=== PATIENT | female | born 1985 | race African-American/Black ===

== ENCOUNTER 2019-10-23 13:46 | Emergency (ER) | payer MEDICARE, SELFPAY ==
[2019-10-23 13:46] VITALS: BP 160/60; PULSE 69; RESP 14; O2SAT 100
[2019-10-23 13:49] VITALS: BP 138/65; PULSE 61; RESP 14; TEMP 37.1; O2SAT 100
--- NOTE | 2019-10-23 14:01 | ED.SYNCOPE ---
HPI - Syncope General Chief Complaint: Seizure Stated Complaint: Syncopal episode Time Seen by Provider: 10/23/19 13:49 Source: patient and RN notes reviewed Mode of arrival: ambulatory Limitations: no limitations History of Present Illness HPI narrative: Pt is a 34 y/o female with a Hx of Chiari malformation, who presents to the ED with c/o syncopal episode happening this afternoon. She notes that she has been very busy and under increased stress at work recently. Pt states that she felt very tired while getting lunch at the [facility] cafeteria this afternoon, noting that she began feeling dizzy and out of it while she was paying for her food. She states that her legs felt as though they were going to give out on her, but notes that she was able to get to a table and sit down. Pt states that shortly after sitting down, she likely lost consciousness. She notes that she doesn't remember what happened, stating that she only remembers waking up to several people standing around her. Pt denies any urinary incontinence or tongue bite during the episode. She notes that she has a Hx of grand mal seizures, but bystanders note that the pt didn't have any convulsions during this episode. Pt currently reports a headache, but denies any other symptoms. MD complaint: loss of consciousness Onset (ago): minute(s) (30) Prodromal symptoms: other (dizziness; weakness) Witnessed: Yes - by Bystander Context: other (while getting lunch) Injuries sustained associated with event: none Current symptoms: headache History: seizure disorder Related Data Home Medications Medication Instructions Recorded Confirmed albuterol sulfate 90 mcg/actuation 2 puff INHALATION Q4-6H PRN gm 07/15/19 10/08/19 aerosol inhaler esomeprazole magnesium 40 mg 40 mg PO DAILY 07/15/19 10/08/19 capsule,delayed release famotidine 20 mg tablet 20 mg PO DAILY 07/15/19 10/08/19 lisinopril 40 mg tablet 40 mg PO DAILY 07/15/19 10/08/19 pregabalin 150 mg capsule 150 mg PO BID 07/15/19 10/08/19 tizanidine 4 mg tablet 4 mg PO Q6-8H PRN tablet 07/15/19 10/08/19 venlafaxine 150 mg 150 mg PO QAM 12/17/19 03/11/20 capsule,extended release 24 hr amitriptyline 10 mg tablet 10 mg PO ONCE tablet 08/06/19 10/08/19 acetazolamide 250 mg tablet 1,000 mg PO BID tablet 09/29/19 10/08/19 Allergies Allergy/AdvReac Type Severity Reaction Status Date / Time topiramate Allergy Unknown ELEVATED Verified 08/19/19 15:03 LIVER ENZYMES, PANCREATITIS Review of Systems Review of Systems: All systems reviewed & are unremarkable except as noted in HPI and below Constitutional: Constitutional: Reports weakness ENT: Denies other (tongue bite) Genitourinary: Genitourinary: Denies urinary incontinence Neurologic: Reports dizziness, Reports syncope and Reports headache(s) [facility] Past Medical History Medical History (Updated 10/24/19 @ 06:57 by José Miguel Martin MD) Anxiety Arnold-Chiari malformation, type I Arthritis Asthma Bronchitis GERD (gastroesophageal reflux disease) Headache, migraine Hernia Hypertension EVELINA (obstructive sleep apnea) Pancreatitis Seizures Surgical History Surgical History History of cholecystectomy Hx of brain surgery decompression for Chiari malformation Hx of gastric bypass Social History Social History Smoking status: Never smoker Second hand tobacco smoke exposure: No Alcohol intake: never Exam Narrative: Exam Narrative: GENERAL: Well-appearing, morbidly obese, and in no acute distress. HEAD: Normocephalic, atraumatic. EYES: PERRL and EOMI. ENT: Mucous membranes moist. No bite hess to tongue. CHEST: Clear to auscultation. No respiratory distress. HEART: Regular rate and rhythm. Normal peripheral pulses. EXTREMITIES: Normal range of motion. No edema. SKIN: Warm, dry, no rash. NEURO: No focal deficits. Alert and [place]
--- NOTE | 2019-10-23 14:30 | PC.NURSE ---
multipe attempts to start IV unsuccessfully. message left with IV therapy for ultrasound iv placement.
[2019-10-23 14:31] VITALS: BP 131/67; PULSE 53; RESP 20; O2SAT 100
[2019-10-23 14:33] VITALS: PULSE 53
[2019-10-23 15:30] VITALS: BP 110/72; PULSE 53; RESP 20; O2SAT 100
== END 2019-10-23 15:30 | disposition left against medical advice (07) ==
PROVIDERS: Emergency Provider Emergency Medicine; PCP Internal Medicine
DX: R55 Syncope and collapse (principal); R51 Headache; G93.5 Compression of brain; M19.90 Unspecified osteoarthritis, unspecified site; J45.909 Unspecified asthma, uncomplicated; K21.9 Gastro-esophageal reflux disease without esophagitis; I10 Essential (primary) hypertension; G47.33 Obstructive sleep apnea (adult) (pediatric); Z98.84 Bariatric surgery status; F41.9 Anxiety disorder, unspecified
CPT/HCPCS: 99284

== ENCOUNTER 2019-11-07 12:36 | Outpatient (CLI) | payer MEDICARE, SELFPAY ==
--- NOTE | ~2019-11-07 | XR_ITS ---
EXAMINATION: XR chest 2V DATE: 11/07/2019 12:55 INDICATION: Shortness of breath. TECHNIQUE: Frontal and lateral views of the chest were obtained. COMPARISON: Chest single view at 02/05/2019 FINDINGS: There is motion artifact on the lateral view. The chest demonstrates clear lungs without pn eumonia, pleural effusion, or pneumothorax. The heart size is normal. Surgical clips in the right upp er quadrant are likely from cholecystectomy. IMPRESSION: 1. No acute cardiopulmonary disease. Reviewed, dictated and finalized at location A.
== END 2019-11-07 12:37 | disposition home or self-care (01) ==
LOC: ANHIMG 12:39
PROVIDERS: PCP Internal Medicine; Visit Provider Nurse Practitioner Family
DX: R06.02 Shortness of breath (principal)
CPT/HCPCS: 71046

== ENCOUNTER 2020-04-29 10:19 | Outpatient (CLI) | payer MEDICARE, SELFPAY ==
--- NOTE | ~2020-04-29 | US_ITS ---
EXAMINATION: US venous doppler LE RT EXAM DATE: 04/29/2020 10:55 INDICATION: Right pain, swelling, elevated d-dimer. TECHNIQUE: Multiple grayscale, color flow and Doppler images of the right lower extremity deep venous system were obtained and reviewed. There is no prior study for comparison. FINDINGS: The right common femoral, femoral and profunda veins demonstrate normal color flow, respira tory variation, augmentation and compressibility. Compressibility, color flow confirmed within the r ight popliteal, posterior tibial, peroneal, and greater saphenous veins. IMPRESSION: 1. No right lower extremity deep venous thrombosis. Reviewed, dictated and finalized at location A.
[2020-04-29 10:53] VITALS: BP 103/59; BP 124/68; PULSE 83; PULSE 89; RESP 18; RESP 20; O2SAT 90; O2SAT 92
== END 2020-04-29 10:20 | disposition home or self-care (01) ==
PROVIDERS: PCP Internal Medicine; Visit Provider Physician Assistant
DX: R79.89 Other specified abnormal findings of blood chemistry (principal); M79.89 Other specified soft tissue disorders
CPT/HCPCS: 93971

== ENCOUNTER 2020-07-21 08:50 | Outpatient (CLI) | payer MEDICARE, SELFPAY ==
--- NOTE | ~2020-07-21 | US_ITS ---
EXAMINATION: US soft tissue LE RT DATE: 07/21/2020 09:26 INDICATION: Ganglion, unspecified site. Right calf lump. TECHNIQUE: Multiple grayscale ultrasound images of the right calf were obtained. COMPARISON: None FINDINGS: In the patient's area of concern in right calf, there is a large distribution of hyperechoi c subcutaneous fat without distinct margins, likely inflammation. IMPRESSION: 1. Hyperechoic subcutaneous fat without distinct margins in the patient's area of concern in right ca lf, likely inflammation. Reviewed, dictated and finalized at location A. MING POOL INSTALLER AND SERVICER IMPRESSION: 1. Hyperechoic subcutaneous fat without distinct margins in the patient's area of concern in right calf, likely inflammation.
== END 2020-07-21 08:51 | disposition home or self-care (01) ==
LOC: ANHIMG 08:54
PROVIDERS: PCP Internal Medicine; Visit Provider Physician Assistant
DX: M67.40 Ganglion, unspecified site (principal); M79.89 Other specified soft tissue disorders
CPT/HCPCS: 76882

== ENCOUNTER 2020-08-03 14:06 | Outpatient (CLI) | payer MEDICARE, SELFPAY ==
--- NOTE | ~2020-08-03 | MR_ITS ---
EXAMINATION: MR femur RT wo/w con DATE: 08/03/2020 15:57 INDICATION: Right thigh lump. TECHNIQUE: Magnetic resonance imaging (MRI) of the right femur was performed without and with 20 mL M ultiHance intravenous contrast. Sequences included axial T1-weighted FS FSE and axial, coronal, and s agittal T1-weighted FSE, T2-weighted FS FSE, and postcontrast T1-weighted FS FSE. COMPARISON: Right femur radiographs 07/26/2020 FINDINGS: Bone alignment is normal. No fracture. Bone marrow signal intensity is normal. The right th igh musculature demonstrates normal signal intensity. There is a skin marker at the posterolateral as pect of the distal thigh. There is no abnormal mass or detectable inflammation in this area. IMPRESSION: 1. No etiology for the patient's symptoms. Reviewed, dictated and finalized at location A. EMATIC THEOLOGY PROFESSOR
[2020-08-03 14:40] LABS: Estimated Glomerular Filt Rate > 60
== END 2020-08-03 14:07 ==
PROVIDERS: Visit Provider Orthopaedic Surgery
DX: R22.41 Localized swelling, mass and lump, right lower limb (principal)
CPT/HCPCS: 73720; A9577

== ENCOUNTER 2020-08-24 06:52 | Outpatient (CLI) | payer MEDICARE, SELFPAY ==
--- NOTE | ~2020-08-24 | MR_ITS ---
EXAMINATION: MR brain/brain stem wo/w con DATE: 08/24/2020 10:23 INDICATION: Headache. TECHNIQUE: Magnetic resonance imaging (MRI) of the brain and brainstem was performed without and with 20 mL MultiHance intravenous contrast. Sequences included sagittal and axial T1-weighted FSE, axial diffusion-weighted FS EPI, axial T2*-weighted GRE, axial T2-weighted FLAIR Propeller, and axial T2-we ighted Propeller. Postcontrast sequences included axial, sagittal, and coronal T1-weighted FSE. Appar ent diffusion coefficient (ADC) maps were created. COMPARISON: Brain MRI 02/07/2019 FINDINGS: The cerebellar tonsils extend inferiorly through the foramen magnum to the level of C1, con sistent with Chiari I malformation. There are changes of resection of the inferior occipital bone and posterior C1 ring. There is no intracranial hemorrhage, acute infarction, or abnormal intracranial m ass lesion. The ventricles are normal in size. There is mild mucosal thickening in right maxillary si nus. The orbits are normal. The mastoid air cells are normal. IMPRESSION: 1. Chiari I malformation status post decompression. Reviewed, dictated and finalized at location A. PHERAL EDP EQUIPMENT OPERATOR
--- NOTE | ~2020-08-24 | MR_ITS ---
EXAMINATION: MR thoracic spine wo/w con EXAM DATE: 08/24/2020 10:23 INDICATION: Headache, surgery for Chiari I malformation. TECHNIQUE: Multi-sequential, multiplanar MR images of the thoracic spine were obtained without contra st. Sagittal T1, T2, T2 fat saturation, axial T2 weighted images reviewed. Axial T1 weighted sequenc e. Patient was then injected with 20 mL Multihance intravenous contrast and reimaged. Postcontrast axial and sagittal T1-weighted fat saturation sequences were obtained. Comparison is made to prior ex amination from 04/28/2015. FINDINGS: Moderate-sized lower cervical syrinx which then becomes imperceptible and then a smaller up per thoracic syrinx at the T2 and T3 levels, measuring about 2 mm maximal AP dimension (thoracic comp onent has significantly decreased in caliber and length, was 6 mm AP dimension in 2015). The remainde r of the thoracic spinal cord and conus are normal in signal. Minimal mid thoracic disc disease with widely patent thoracic central canal and neural foramen. There are no suspicious marrow signal abnorm alities. Mild thoracic facet arthropathy. There are no areas of abnormal enhancement on the post cont rast images. IMPRESSION: Small upper thoracic syrinx at T2 at 3 levels with significant interval decrease in size compared to 2014. 1. Minimal disc disease. Reviewed, dictated and finalized at location A. LOADER IMPRESSION: Small upper thoracic syrinx at T2 at 3 levels with significant interval decrea se in size compared to 2014. 1. Minimal disc disease.
--- NOTE | ~2020-08-24 | MR_ITS ---
EXAMINATION: MR cervical spine wo/w con EXAM DATE: 08/24/2020 10:23 INDICATION: Headache. Chronic area 1 malformation. TECHNIQUE: Multi-sequential, multiplanar MR images of the cervical spine were obtained without contra st. Axial T2, axial T2 MERGE sequence. Sagittal T1, T2, T2 fat saturation images also obtained. Axi al T1 weighted sequence. Patient was then injected with 20 mL Multihance intravenous contrast and re imaged. Postcontrast axial and sagittal T1-weighted fat saturation sequences were obtained. Compar bar is made to prior examination from 10/29/2018. FINDINGS: There are surgical changes from suboccipital decompressive craniectomy for Chiari I malform ation. There is short segment syrinx posterior to C6 and C7 vertebral bodies with maximal axial dime nsions 5 x 4 mm, decreased in size from previous examination at 6 x 5 mm. There is also been interval decrease in size of the smaller syrinx posterior to T2-3 vertebral bodies which now measures 2 mm in AP dimension versus 3 mm on study. There is a hemangioma within the C3 vertebral body posteriorly. Paraspinal soft tissue is unremarkabl e. No more than mild cervical spondylosis without stenosis. There are no areas of abnormal enhancemen t on the post contrast images. IMPRESSION: Improving size of lower cervical, upper thoracic syrinx. No acute findings. Reviewed, dictated and finalized at location A. NING AIDE IMPRESSION: Improving size of lower cervical, upper thoracic syrinx. No acute f indings.
--- NOTE | ~2020-08-24 | MR_ITS ---
EXAMINATION: MR lumbar spine wo/w con EXAM DATE: 08/24/2020 10:23 INDICATION: Headache, chronic urinary malformation. TECHNIQUE: Multi-sequential, multiplanar MR images of the lumbar spine were obtained without contrast . Sagittal T1, T2, T2 fat saturation images. Axial T2 weighted images. Axial T1 weighted sequence. Patient was then injected with 20 mL Multihance intravenous contrast and reimaged. Postcontrast axi al and sagittal T1-weighted fat saturation sequences were obtained. Comparison is made to prior exami nation from 03/01/2015. FINDINGS: There is mild disc disease at L4-5 without loss of height. The vertebral bodies are aligned in the AP dimension. There are no suspicious marrow signal abnormalities. The conus medullaris termi nates at the L1/2 level and has normal signal intensity and morphology. Paraspinal soft tissue is un remarkable. There are no areas of abnormal enhancement on the post contrast images. Level by level evaluation: T12-L1: Disc does not extend beyond the endplate margin. Facet arthropathy: Mild. Neural foraminal stenosis: No stenosis. Central canal stenosis: No stenosis. L1-L2: Disc does not extend beyond the endplate margin. Facet arthropathy: Mild. Neural foraminal stenosis: No stenosis. Central canal stenosis: No stenosis. L2-L3: Disc does not extend beyond the endplate margin. Facet arthropathy: Mild. Neural foraminal stenosis: No stenosis. Central canal stenosis: No stenosis. L3-L4: There is a mild diffuse disc bulge. Facet arthropathy: Mild to moderate . Ligamentum flavum enlargement. Neural foraminal stenosis: Mild bilateral. Central canal stenosis: Mild. L4-L5: There is a mild diffuse disc bulge. Facet arthropathy: Mild to moderate. Neural foraminal stenosis: Mild bilateral. Central canal stenosis: Mild. L5-S1: There is a mild diffuse disc bulge. Facet arthropathy: Mild. Neural foraminal stenosis: No stenosis. Central canal stenosis: Mild. IMPRESSION: 1. Mild lumbar spondylosis. Reviewed, dictated and finalized at location A. LE MANAGER IMPRESSION: 1. Mild lumbar spondylosis.
== END 2020-08-24 06:53 | disposition home or self-care (01) ==
PROVIDERS: Family Provider Internal Medicine; PCP Internal Medicine
DX: G93.5 Compression of brain (principal); M47.817 Spondylosis without myelopathy or radiculopathy, lumbosacral region; M48.07 Spinal stenosis, lumbosacral region; M47.25 Other spondylosis with radiculopathy, thoracolumbar region
CPT/HCPCS: 70553; 72156; 72157; 72158; A9577

== ENCOUNTER 2020-08-26 08:58 | Outpatient (CLI) | payer MEDICARE, SELFPAY ==
--- NOTE | 2020-08-26 | EST_ITS ---
Patient Info Name: Porfirio Prieto Age: 35 years : 1985 Gender: Female Ht: 70 in Wt: 350 lbs BSA: 2.89 m2 Exam Date: 08/26/2020 10:46 AM Exam Location: [facility] Stress Patient Status: Outpatient Admit Date: 08/26/2020 Staff Ordering Physician: Dez Cherry PA-C Attending Provider: Dez Cherry PA-C Exercise Technologist: Lilli Pollack RDCS Exercise Physician: Anil Leung DO Exam Type: CA stress irwin w NM Study Info Indications R06.02 - Shortness of breath A regadenoson stress test was performed. Summary 1. 1. Negative lexiscan stress test for ischemic ST changes by ECG criteria. 2. 2. Stable hemodynamics throughout the test. 3. 3. Nuclear scan to follow and will be reported separately. Please correlate with it. 4. 4. Patient informed of the above results. Protocol: Lexiscan Stress ECG Details Stage: REST Duration (min): 1 min : 29 sec HR (bpm): 70 SBP (mmHg): 126 DBP (mmHg): 91 Stage: REST Duration (min): 6 min : 59 sec HR (bpm): 69 SBP (mmHg): 126 DBP (mmHg): 91 Stage: STAGE 1 Duration (min): 1 min : 0 sec HR (bpm): 98 SBP (mmHg): 131 DBP (mmHg): 78 Stage: RECOVERY Duration (min): 1 min : 0 sec HR (bpm): 98 SBP (mmHg): 134 DBP (mmHg): 81 Stage: RECOVERY Duration (min): 2 min : 0 sec HR (bpm): 93 SBP (mmHg): 134 DBP (mmHg): 81 Stage: RECOVERY Duration (min): 3 min : 0 sec HR (bpm): 92 SBP (mmHg): 136 DBP (mmHg): 80 Stage: RECOVERY Duration (min): 4 min : 0 sec HR (bpm): 93 SBP (mmHg): 136 DBP (mmHg): 80 Stage: RECOVERY Duration (min): 5 min : 0 sec HR (bpm): 88 SBP (mmHg): 149 DBP (mmHg): 75 Stage: RECOVERY Duration (min): 6 min : 0 sec HR (bpm): 91 SBP (mmHg): 149 DBP (mmHg): 75 Stage: RECOVERY Duration (min): 7 min : 0 sec HR (bpm): 91 SBP (mmHg): 149 DBP (mmHg): 75 Stage: RECOVERY Duration (min): 8 min : 0 sec HR (bpm): 90 SBP (mmHg): 158 DBP (mmHg): 97 Stage: RECOVERY Duration (min): 8 min : 53 sec HR (bpm): 83 SBP (mmHg): 131 DBP (mmHg): 96 Rest HR: 69 bpm Peak HR: 99 bpm Rest Sys BP: 126 mmHg Peak Sys BP: 158 mmHg Max Pred HR: 183 bpm % Max Pred HR: 54 % Target HR: 156 bpm Max RPP: 15,642 bpm*mmHg Termination Reason: Completed protocol Cardiac Symptoms: Shortness of breath Total Time: 1 min : 0 sec Rest Aguirre BP: 91 mmHg Peak Aguirre BP: 97 mmHg Total Dose: 0.4 mg Resting ECG Sinus rhythm, borderline T wave in anterolat/inf leads. Stress ECG No ST changes. Arrhythmias None. Report Signatures
--- NOTE | ~2020-08-26 | NM_ITS ---
EXAMINATION: NM stress w perf spect multi DATE: 08/26/2020 12:53 INDICATION: Dyspnea on exertion. TECHNIQUE: Rest images were obtained following intravenous administration of 9.5 mCi Tc99m tetrofosmi n (DripDrop). The patient performed an exercise activity. At peak exercise, 28.5 mCi Tc99m tetrofosmin (IPTEGOview) was administered intravenously, and supine and prone stress images were obtained. Data was reconstructed into short axis and horizontal and vertical long axis SPECT images. Gated SPECT images were also obtained. COMPARISON: None. FINDINGS: There is no definite reversible or fixed perfusion abnormality to suggest ischemia or infar ction. There is no segmental wall motion abnormality. Left ventricular ejection fraction measures > 70%. IMPRESSION: 1. No definite ischemia or infarct. 2. Normal left ventricular ejection fraction measuring >70%. Reviewed, dictated and finalized at location A. EGE ADMINISTRATOR
== END 2020-08-26 08:59 | disposition home or self-care (01) ==
LOC: ANHCARD 08:59
PROVIDERS: Family Provider Internal Medicine; PCP Internal Medicine; Visit Provider Physician Assistant
DX: R06.02 Shortness of breath (principal)
CPT/HCPCS: 78452; 93017; A9502; J2785

== ENCOUNTER 2020-10-07 11:09 | Outpatient (CLI) | payer MEDICARE, SELFPAY ==
[2020-10-07 12:22] LABS: D Dimer 0.96 ug/mL (<0.48)
== END 2020-10-07 11:10 | disposition home or self-care (01) ==
LOC: ANHLAB 11:10
PROVIDERS: PCP Internal Medicine; Visit Provider Physician Assistant
DX: R07.9 Chest pain, unspecified (principal)
CPT/HCPCS: 36415; 85380

== ENCOUNTER 2021-03-31 09:37 | Emergency (ER) | payer MEDICARE, MEDICAID, SELFPAY ==
--- NOTE | ~2021-03-31 | XR_ITS ---
EXAMINATION: XR chest 2V DATE: 03/31/2021 09:57 INDICATION: Right midsternal chest pain TECHNIQUE: PA and lateral views of the chest were obtained. COMPARISON: Chest radiograph dated 11/07/2019 FINDINGS: The lungs are clear with no focal airspace opacities, pulmonary edema, pleural effusion or pneumothor ax. The cardiomediastinal silhouette is normal. Likely cholecystectomy clips in the upper abdomen. Vi sualized bones and soft tissues are unremarkable. IMPRESSION: 1. No acute cardiopulmonary disease. Reviewed, dictated and finalized at location A.
--- NOTE | ~2021-03-31 | CT_ITS ---
EXAMINATION: CTA chest PE protocol DATE: 03/31/2021 15:23 INDICATION: Dyspnea on exertion. Substernal chest pain. TECHNIQUE: Computed tomography angiography (CTA) of the chest was performed with 100 mL Omnipaque-350 intravenous contrast timed to evaluate the pulmonary arteries. Coronal maximum intensity projection 3D-reconstructions were created by the technologist. Automated exposure control and iterative reconst ruction technique were employed. The dose-length product was 997.26 mGy-cm. COMPARISON: None. FINDINGS: The lungs demonstrate mild atelectasis. There are 2 small pneumatoceles in right lung. No p leural effusion. The heart size is normal. No pericardial effusion. Pneumobilia is noted, likely seco ndary to sphincterotomy. There is mild thoracic spondylosis. IMPRESSION: 1. No pulmonary embolus. Sensitivity is mildly decreased by motion artifact. Reviewed, dictated and finalized at location A.
[2021-03-31 09:36] VITALS: BP 159/80; PULSE 66; RESP 20; TEMP 36.3; O2SAT 99
--- NOTE | 2021-03-31 09:41 | ECG_ITS ---
Measurements Intervals [place] Rate: 65 P: 27 LA: 193 QRS: 4 QRSD: 105 T: -9 QT: 411 QTc: 428 Interpretive Statements SINUS RHYTHM LOW QRS VOLTAGE IN PRECORDIAL LEADS CANNOT RULE OUT SEPTAL INFARCT, AGE INDETERMINATE BORDERLINE T WAVE ABNORMALITY- ANT/INF LEADS BASELINE ARTIFACT- I, II, III, AVR, AVF, V1, V3-V6 ABNORMAL ECG Electronically Signed On 03-31-2021 9:46:39 CDT by Anil Leung D.O.
[2021-03-31 10:14] VITALS: PULSE 77
[2021-03-31 11:12] LABS: Basophils Percent Auto 0.2 % (0.2-1.2); Eosinophils Percent Auto 0.9 % (0-4.4); Hematocrit 35.1 % (37.0-47.0); Hemoglobin 10.3 g/dL (12.0-15.0); Immature Granulocyte Absolute 0.01 K/mm3 (0.00-0.031); Immature Granulocyte Percent A 0.2 % (0-0.5); Lymphocytes Absolute Auto 1.48 K/mm3 (0.9-3.2); Lymphocytes Percent Auto 34.3 % (18.3-44.2); Mean Corpuscular HGB Conc 29.3 g/dl (32-36); Mean Corpuscular Hemoglobin 25.6 pg (26-34); Mean Corpuscular Volume 87.1 fl (80-100); Mean Platelet Volume 10.5 fl (7.4-10.4); Monocytes Absolute Auto 0.4 K/mm3 (0.1-0.6); Monocytes Percent Auto 9.3 % (2.6-8.5); Neutrophils Absolute Auto 2.4 K/mm3 (1.3-6.7); Neutrophils Percent Auto 55.1 % (45.5-73.1); Platelet Count Result 223 k/mm3 (150-375); Red Blood Count 4.03 M/mm3 (4.2-5.4); Red Cell Distribution Width 16.4 % (11.5-14.5); White Blood Count 4.3 K/mm3 (4.5-10.0)
[2021-03-31 11:22] LABS: INR 0.9; Prothrombin Time 12.3 Seconds (11.1-14.7)
[2021-03-31 11:27] LABS: Anion Gap 14 mmol/L (8-16); Blood Urea Nitrogen 13 mg/dL (7-17); Calcium 8.9 mg/dL (8.4-10.2); Carbon Dioxide 18 mmol/L (22-30); Chloride 110 mmol/L (98-107); Estimated CRCL calculation 105 ml/min; Estimated Glomerular Filt Rate > 60; Glucose 96 mg/dL (65-110); Potassium 3.9 mmol/L (3.4-5.0); Sodium 142 mmol/L (137-145)
[2021-03-31 11:29] LABS: Hypochromasia 1+ (NORMAL); Ovalocytes 1+ (NORMAL); Platelet Estimate Adequate (Adequate)
[2021-03-31 11:39] LABS: Troponin I < 0.012 ng/mL (0.000-0.034)
[2021-03-31] MEDS: HYDROmorphone HCL INJ (*CRX) 1 MG/ML SYR 0.5 MG IV PUSH ×2 (11:56→15:40)
[2021-03-31 12:13] VITALS: BP 159/91; PULSE 75; RESP 14; O2SAT 99
[2021-03-31 13:00] VITALS: BP 154/95; PULSE 56; RESP 14; O2SAT 100
--- NOTE | 2021-03-31 13:39 | ED.CHESTPAIN ---
HPI - Chest Pain General Chief Complaint: Chest Pain Stated Complaint: CP Time Seen by Provider: 03/31/21 10:01 Source: patient Mode of arrival: EMS Limitations: no limitations History of Present Illness HPI narrative: Patient with history of neurological issues, Chiari malformation and asthma presents with chief complaint of substernal chest pain that radiates into her back and feels tight. Patient was brought in via EMS and states that her chest pain subsided prior to arrival. Patient was given 324 mg of aspirin. Patient denies history of heart attack or stroke. Patient denies fever, chills, nausea, vomiting, diarrhea. Related Data Home Medications Medication Instructions Recorded Confirmed albuterol sulfate 90 mcg/actuation 2 puff INHALATION Q4-6H PRN gm 07/15/19 01/19/21 aerosol inhaler esomeprazole magnesium 40 mg 40 mg PO DAILY 07/15/19 01/19/21 capsule,delayed release multivitamin with minerals 1 tablet PO DAILY 04/27/20 01/19/21 gvdpkogyzhla-wzhfkrbj-wgjracm-folic 1 tablet PO DAILY 04/27/20 01/19/21 acid 400 mcg-vit K1 20 mcg tablet pregabalin 150 mg capsule 200 mg PO BID cap 04/27/20 01/19/21 tizanidine 4 mg tablet 4 mg PO TID PRN 04/27/20 01/19/21 acetazolamide 250 mg tablet 500 mg PO BID tablet 08/23/20 01/19/21 rimegepant 75 mg disintegrating 75 mg PO ONCE PRN 08/23/20 01/19/21 tablet sennosides 8.6 mg capsule 8.6 mg PO BID 10/07/20 01/19/21 galcanezumab-gnlm 120 mg/mL 120 mg SUBCUT MONTHLY 12/31/20 01/19/21 subcutaneous pen injector Allergies Allergy/AdvReac Type Severity Reaction Status Date / Time topiramate Allergy Unknown ELEVATED Verified 01/19/21 10:44 LIVER ENZYMES, PANCREATITIS Review of Systems Review of Systems: CONSTITUTIONAL: Denies fever, chills, or sweats. EYES: Denies visual changes, redness, or discharge. ENT: Denies rhinorrhea, congestion, sore throat, or otalgia. CARDIOVASCULAR: Reports chest pain, denies palpitations, or edema. RESPIRATORY: Denies cough or dyspnea. GASTROINTESTINAL: Denies abdominal pain, nausea, vomiting, or diarrhea. GENITOURINARY: Denies dysuria or hematuria. SKIN: Denies rash or itching. MUSCULOSKELETAL: Denies back pain, joint pain, or myalgia. NEUROLOGIC: Denies headache, numbness, dizziness, or weakness. PSYCHIATRIC: Denies anxiety or depression. [facility] Past Medical History Medical History Abdominal pain Anxiety Arnold-Chiari malformation, type I Arthritis Asthma Bronchitis Dizziness GERD (gastroesophageal reflux disease) Headache, migraine Hernia Hypertension Light headedness Mass of right thigh Memory loss EVELINA (obstructive sleep apnea) Pancreatitis Seizures Unstable gait Surgical History Surgical History History of cholecystectomy Hx of brain surgery decompression for Chiari malformation Hx of gastric bypass Family History Family History Father Hypertension Grandparent Diabetes mellitus Hypertension Family history of skin conditions Cerebrovascular accident Carcinoma of colon Family history of primary malignant neoplasm of liver Sibling Diabetes mellitus Mother Diabetes mellitus Hypertension Family history of cardiomyopathy Other Family history of arthritis Family history of cardiovascular disease Family history of pulmonary embolism Social History Social History Smoking status: Never smoker Second hand tobacco smoke exposure: No Alcohol intake: never Substance use: never Exam Narrative: GENERAL: Well-appearing, well-nourished, and in no acute distress. Patient obese. HEAD: Normocephalic, atraumatic. EYES: PERRLA and EOMI. CHEST: Clear to auscultation. No respiratory distress. No wheezes rales or rhonchi HEART: Regular rate and rhythm. No murm
[2021-03-31 15:36] LABS: D Dimer 0.75 ug/mL (<0.48)
[2021-03-31 15:41] VITALS: BP 168/102; PULSE 59; RESP 14; O2SAT 98
[2021-03-31 15:50] LABS: Troponin I < 0.012 ng/mL (0.000-0.034)
[2021-03-31 16:39] VITALS: BP 162/96; PULSE 58; RESP 14; O2SAT 100
== END 2021-03-31 16:45 | disposition home or self-care (01) ==
PROVIDERS: Physician Assistant; Emergency Provider Emergency Medicine; PCP Internal Medicine
DX: R07.9 Chest pain, unspecified (principal); J45.909 Unspecified asthma, uncomplicated; G93.5 Compression of brain; K21.9 Gastro-esophageal reflux disease without esophagitis; I10 Essential (primary) hypertension; G47.33 Obstructive sleep apnea (adult) (pediatric); Z98.84 Bariatric surgery status; R94.31 Abnormal electrocardiogram [ECG] [EKG]
CPT/HCPCS: 36415; 71046; 71275; 80048; 84484; 85025; 85380; 85610; 85730; 93005; 96374; 96376; 99284; J1170; Q9967

== ENCOUNTER → 2021-04-26 03:27 | Outpatient (CLI) | payer MEDICARE, MEDICAID, SELFPAY ==
[2021-04-27 01:26] LABS: SARS-CoV-2 RNA PCR Negative
== END ==
PROVIDERS: PCP Internal Medicine; Visit Provider Internal Medicine
DX: Z20.822 Contact with and (suspected) exposure to COVID-19 (principal); R05 Cough
CPT/HCPCS: C9803; U0003; U0005

== ENCOUNTER 2022-11-27 09:22 | Outpatient (CLI) | payer MEDICARE, MEDICAID, SELFPAY ==
--- NOTE | ~2022-11-27 | MR_ITS ---
EXAMINATION: MR MRCP wo/w con/w 3D wo ind DATE: 11/27/2022 10:50 INDICATION: Acute pancreatitis with a couple weeks of abdominal pain, nausea and vomiting TECHNIQUE: Magnetic resonance imaging (MRI) of the abdomen was performed without and with 20 mL Multi marlen intravenous contrast. Sequences included coronal T2-weighted SS-FSE, coronal T2-weighted FS SS- FSE, coronal T2-weighted FS FIESTA, axial T2-weighted FS FIESTA, axial T2-weighted FIESTA, sagittal T 2-weighted SS-FSE, axial T1-weighted dual-echo FSPGR, axial T2-weighted SS-FSE, axial T1-weighted LAV A, axial T2-weighted STIR FSE. Thick-slab T2-weighted FRFSE-XL images were obtained for magnetic reso nance cholangiopancreatography (MRCP). Rotating maximum intensity projection 3-D reconstructions of t he volumetric data were created by the technologist. Postcontrast sequences included a time course of axial T1-weighted LAVA. COMPARISON: Chest CT dated 03/31/2021 FINDINGS: ABDOMEN MRI: Mild cardiomegaly. No pericardial or pleural effusion. Status post cholecystectomy with magnetic fiel ds artifact associated with cholecystectomy clips the gallbladder fossa. Linear absent signal consist ent with persistent small amount of pneumobilia extending along the bile ducts in the central left he patic lobe. Liver is otherwise unremarkable. Spleen, pancreas, bilateral adrenal glands and kidneys a re normal. Visualized portions of the bowels are unremarkable with no dilated loops to suggest obstru ction. Small fat-containing umbilical hernia. No pathologically enlarged abdominal lymphadenopathy. M ild lumbar levocurvature with mild spondylosis. Bone marrow signal is normal throughout. ABDOMEN MRCP: No intrahepatic biliary ductal dilation. The common bile duct is normal in caliber measuring approxim ately 2-3 mm on the coronal T2-weighted SS-FSE sequence. It is poorly visualized on many of the remai dave sequences including the MRCP sequences due to a combination of its small size and motion artifac t. Main pancreatic duct is also normal. IMPRESSION: 1. Small amount of intrahepatic pneumobilia likely related to prior cholecystectomy and sphincterotom y. No intra or extrahepatic biliary ductal dilation. 2. Normal-appearing pancreas and main pancreatic duct. 3. Mild cardiomegaly. Reviewed, dictated and finalized at location B. IMPRESSION: 1. Small amount of intrahepatic pneumobilia likely related to prior cholecystec zahraa and sphincterotomy. No intra or extrahepatic biliary ductal dilation. 2. Normal-appearing pancreas and main pancreatic duct. 3. Mild cardiomegaly.
== END 2022-11-27 09:23 | disposition home or self-care (01) ==
PROVIDERS: Visit Provider Internal Medicine Gastroenterology
DX: K85.90 Acute pancreatitis without necrosis or infection, unspecified (principal); I51.7 Cardiomegaly
CPT/HCPCS: 74183; 76376; A9577

== ENCOUNTER 2023-01-20 08:57 | Outpatient (CLI) | payer MEDICARE, MEDICAID, SELFPAY ==
--- NOTE | ~2023-01-20 | MR_ITS ---
MRI of the left knee Clinical history: Pain Technique: Coronal proton density and proton density-weighted images, sagittal proton-density and T2 fat-sat images, and axial proton-density fat-saturated images were acquired. COMPARISON: 03/19/2015 Findings: Anterior and posterior cruciate ligaments are intact. Medial collateral ligament and the la teral collateral ligament complex are intact. Popliteus tendon is intact. No definite medial or lateral meniscal tear seen. There is extensive intrasubstance degenerative sign al in the anterior horn of the lateral meniscus. There is focal areas of high-grade chondromalacia at the posterior central aspect of the lateral femo ral condyle. There is extensive mild to moderate chondral thinning along the medial femoral condyle. There is extensive high-grade chondromalacia the femoral trochlea. There is also extensive high-grade chondromalacia the lateral patellar facet. Tricompartmental osteophytes are present. Extensor mechanism is intact. No significant joint effusion or Moss's cyst present. Impression: Moderate tricompartmental osteoarthritis, worst in the patellofemoral compartment. Chondromalacia is moderately progressed in the medial compartment, but similar in the lateral and patellofemoral landry rtments. No ligamentous injury or definite meniscal tear seen. Reviewed, dictated and finalized at location . Impression: Moderate tricompartmental osteoarthritis, worst in the patellofemoral compartme nt. Chondromalacia is moderately progressed in the medial compartment, but sim ilar in the lateral and patellofemoral compartments. No ligamentous injury or definite meniscal tear seen.
== END 2023-01-20 08:58 | disposition home or self-care (01) ==
PROVIDERS: Visit Provider Family Medicine
DX: M17.12 Unilateral primary osteoarthritis, left knee (principal)
CPT/HCPCS: 73721